=== PATIENT | male | born 1955 | race Asian ===

== ENCOUNTER 2017-11-08 09:13 | Day surgery (SDC) | payer OTHER ==
[2017-11-08] MEDS ORDERED: MIDAZOLAM 1 MG/ML 2 ML INJ (11:28)
[2017-11-08] MEDS ORDERED: FENTAnyl 50 MCG/ML VIAL (11:28)
== END 2017-11-08 11:26 | disposition home or self-care (01) ==
LOC: GIL 09:13
DX: Z12.11 Encounter for screening for malignant neoplasm of colon (principal); D12.5 Benign neoplasm of sigmoid colon; K64.8 Other hemorrhoids
CPT/HCPCS: 45385; 88305